=== PATIENT | male | born 1995 | race Two or more races ===

== ENCOUNTER 2024-10-24 13:00 | Emergency (ER) | payer MEDICAID ==
[~2024-10-24] VITALS: Ht 170.2 cm; Wt 77.0 kg
[2024-10-24 13:11] VITALS: TEMP 98.2
[2024-10-24] MEDS ORDERED: LOSA-382 PO (13:13)
[2024-10-24] MEDS: ACETAMINOPHEN 500 MG TABLET PO ONE (14:30)
[2024-10-24] MEDS: IBUPROFEN 400 MG TABLET PO ONE (14:30)
[2024-10-24 15:26] VITALS: BP 125/78; PULSE 78; RESP 18; O2SAT 99
== END 2024-10-24 15:49 | disposition home or self-care (01) ==
LOC: EMS 13:02
DX: S90.112A Contusion of left great toe without damage to nail, initial encounter (principal); I10 Essential (primary) hypertension; W31.89XA Contact with other specified machinery, initial encounter; Y93.89 Activity, other specified; Y92.89 Other specified places as the place of occurrence of the external cause; Y99.8 Other external cause status
CPT/HCPCS: 99283